=== PATIENT | male | born 1955 | race Caucasian/White ===

== ENCOUNTER 2018-12-20 11:54 | Emergency (ER) | payer OTHER ==
--- NOTE | 2018-12-20 13:03 | EDPHY ---
H & P Stated Complaint: left elbow infection, getting worse after PO antibiotic Time Seen by Provider: 12/20/18 12:24 HPI/ROS: Chief Complaint: Right elbow infection HPI: 63-year-old male is presenting with 1 week of redness and pain below his right elbow. Patient was seen by his primary care physician 5 days ago and started on Keflex 4 times a day. The redness and swelling has gotten worse. He was sent here for further evaluation. He has noticed increased bogginess over his elbow. He does not have any pain with flexion or extension. 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 No fevers or chills. No streaking up his arm. He does have a history of elevated uric acid is last physicians visit. ROS: 10 systems were reviewed and were negative except those elements noted in the HPI. PMH: Paroxysmal atrial tachycardia Social History: No smoking, rare alcohol, no recreational drug use Family History: non-contributory Physical Exam: Gen: Awake, Alert, No Distress HEENT: Nose: no rhinorrhea Eyes: PERRLA, EOMI Mouth: Moist mucosa Neck: Supple, no JVD Ext: Patient has erythema 15 cm x 10 cm over his right elbow. There is swelling and bogginess over the olecranon bursa. There is no joint involvement. Full range of motion without pain. There is fluctuance without pointing. There is some desquamation. Redness is outside of the demarcated area from 5 days ago. It is warm to touch. There is no lymphangitic streaking proximally. Sensations intact in the radial median and ulnar nerve distribution. He has 2+ radial pulses. Skin: Upper extremity exam Neuro: CN II-XII intact, Sensation grossly intact, Strength 5/5 in bilateral upper and lower extremities - Personal History Current Tetanus Diphtheria and Acellular Pertussis (TDAP): Yes - Medical/Surgical History Hx Asthma: No Hx Chronic Respiratory Disease: No Hx Diabetes: No Hx Cardiac Disease: Yes Hx Renal Disease: No Hx Cirrhosis: No Hx Alcoholism: No Hx HIV/AIDS: No - Social History Smoking Status: Never smoked Constitutional: Initial Vital Signs Temperature (C) 37 C 12/20/18 12:06 Heart Rate 67 12/20/18 12:06 Respiratory Rate 20 12/20/18 12:06 Blood Pressure 128/68 H 12/20/18 12:06 O2 Sat (%) 93 12/20/18 12:06 O2 Delivery Mode Room Air Allergies/Adverse Reactions: No Known Allergies Allergy (Unverified 12/20/18 12:05) Home Medications: Medication Instructions Recorded Aspirin 12/20/18 Metoprolol Succinate 12/20/18 ZYRTEC 12/20/18 Medical Decision Making Procedures: Procedure: Septic bursa aspiration. After verbal informed consent was obtained explaining the risks including but not limited to infection and bleeding a and aspiration was performed on the right olecranon bursa. The patient was prepped and draped in the usual sterile fashion using chlorhexidine. The patient declined anesthetic Approximately 10 mL of purulent fluid was obtained. There were no complications. The procedure was performed by myself. ED Course/Re-evaluation: Patient has a septic bursitis with surrounding cellulitis. This is been aspirated and sent for Gram stain and culture. I have discussed with Dr. Scott Kaufman, infectious Disease. He is requesting that we give the patient 2 g of ceftriaxone here. He will see the patient in his office at 2:00 p.m. Tomorrow afternoon. I have also paged Orthopedics. Spoke with Dr. Nando Poe fws faculty assistant. They would like to see patient on Thursday at 9:30 a.m.. They are requesting that the patient remain NPO after midnight the night before. - Data Points Medications Given: Discontinued Medications Ceftriaxone Sodium 2 gm/ (Sodium Chloride) 100 mls @ 200 mls/hr IV EDNOW ONE PRN Reason: Protocol Stop: 12/20/18 13:17 Last Admin: 12/20/18 12:58 Dose: 100 mls Departure - Departure Disposition: Home, Routine, Self-Care Clinical Impression: Septic bursitis Condition: Good Instructions: Elbow Bursitis (ED) Additional Instructions: Follow up with Dr. Scott Kaufman, infectious Disease, tomorrow at 2:00 p.m. In his office. Follow up with Dr. Rosales Collier, orthopedics, at 9:30 a.m. On Thursday, December [address] [place] office. Please do not eat or drink anything after midnight the night before. Return to the emergency department for increasing redness, swelling, fevers, streaking up your arm, or any other concerns. Referrals: Scott Kaufman MD [Medical Doctor] - As per Instructions Rosales Collier MD [Medical Doctor] - As per Instructions
[2018-12-20 14:23] VITALS: BP 139/89
[2018-12-20 15:13] LABS: PLATELET COUNT 304 10^3/uL (150-400)
== END 2018-12-20 14:23 | disposition home or self-care (01) ==
LOC: CED 11:54
PROC: 0M933ZZ Drainage of Right Elbow Bursa and Ligament, Percutaneous Approach (ICD-10-PCS; principal; 2018-12-20)
DX: L98.9 Disorder of the skin and subcutaneous tissue, unspecified (principal)
CPT/HCPCS: 96365-ER; 99284-ER; J0696